=== PATIENT | male | born 1965 | race Caucasian/White ===

== ENCOUNTER 2020-09-19 20:10 | Emergency (ER) | payer OTHER ==
[~2020-09-19 20:10] MED LIST: IBUPROFEN800 MG PO
[2020-09-19] MEDS ORDERED: TESSALON PERLE100 MG PO (23:58)
[2020-09-19] MEDS ORDERED: OMNICEF 300 MG300 MG PO (23:58)
== END 2020-09-19 23:55 | disposition home or self-care (01) ==
LOC: ER1 20:10
DX: J01.00 Acute maxillary sinusitis, unspecified (principal); I10 Essential (primary) hypertension; F17.200 Nicotine dependence, unspecified, uncomplicated; Z88.0 Allergy status to penicillin; Z20.822 Contact with and (suspected) exposure to COVID-19
CPT/HCPCS: 0240U; 71045; 99283

== ENCOUNTER 2021-02-16 17:33 | Emergency (ER) | payer OTHER ==
[~2021-02-16 17:33] MED LIST changes: +OMNICEF 300 MG300 MG PO; +TESSALON PERLE100 MG PO
[2021-02-16 19:43] LABS: HEMOGLOBIN 15.5 gm/dl (14.0-17.5); RED BLOOD COUNT 5.3 M/UL (4.20-5.50); WHITE BLOOD COUNT 14.7 K/UL (4.5-11.0)
[2021-02-16 20:06] LABS: BUN/CREATININE RATIO 15 (0-10)
== END 2021-02-16 20:20 | disposition left against medical advice (07) ==
LOC: ER1 17:33
PROVIDERS: Family Medicine
DX: F41.0 Panic disorder [episodic paroxysmal anxiety] (principal); I10 Essential (primary) hypertension; Z88.0 Allergy status to penicillin
CPT/HCPCS: 80053; 82550; 82553; 83874; 84484; 85025; 93005; 99284

== ENCOUNTER 2021-06-12 08:12 | Emergency (ER) | payer OTHER ==
[2021-06-12 08:41] LABS: HEMOGLOBIN 14.8 gm/dl (14.0-17.5); RED BLOOD COUNT 5.22 M/UL (4.20-5.50)
[2021-06-12 08:57] LABS: BUN/CREATININE RATIO 15 (0-10)
== END 2021-06-12 10:00 | disposition home or self-care (01) ==
LOC: ER1 08:12
PROVIDERS: Physician Assistant
DX: R42 Dizziness and giddiness (principal); I10 Essential (primary) hypertension; F17.200 Nicotine dependence, unspecified, uncomplicated; Z88.0 Allergy status to penicillin
CPT/HCPCS: 70450; 71045; 80053; 82550; 82553; 84484; 85025; 93005; 99285; J7030

== ENCOUNTER 2021-09-09 08:55 | Emergency (ER) | payer OTHER ==
[2021-09-09 09:57] LABS: HEMOGLOBIN 17.4 gm/dl (14.0-17.5); RED BLOOD COUNT 5.93 M/UL (4.20-5.50)
[2021-09-09 10:19] LABS: BUN/CREATININE RATIO 18 (0-10)
== END 2021-09-09 11:55 | disposition home or self-care (01) ==
LOC: ER1 08:55
PROVIDERS: Nurse Practitioner
DX: F32.A Depression, unspecified (principal); I10 Essential (primary) hypertension; F17.210 Nicotine dependence, cigarettes, uncomplicated; Z88.0 Allergy status to penicillin
CPT/HCPCS: 80053; 80307; 81001; 85025; 99284

== ENCOUNTER 2021-12-26 09:22 | Emergency (ER) | payer OTHER ==
[2021-12-26 09:54] LABS: HEMOGLOBIN 16.1 gm/dl (14.0-17.5); RED BLOOD COUNT 5.44 M/UL (4.20-5.50); WHITE BLOOD COUNT 8.4 K/UL (4.5-11.0)
[2021-12-26 10:12] LABS: BUN/CREATININE RATIO 16 (0-10)
[2021-12-26] MEDS ORDERED: VISTARIL 50 MG50 MG PO (10:49)
== END 2021-12-26 11:02 | disposition home or self-care (01) ==
LOC: ER1 09:22
PROVIDERS: Student in an Organized Health Care Education/Training Program
DX: F41.0 Panic disorder [episodic paroxysmal anxiety] (principal); I10 Essential (primary) hypertension; F17.210 Nicotine dependence, cigarettes, uncomplicated; Z88.0 Allergy status to penicillin
CPT/HCPCS: 71045; 80053; 84484; 85025; 93005; 99285